=== PATIENT | female | born 1945 | race Caucasian/White ===

== ENCOUNTER → 2017-06-05 | Outpatient (CLI) | payer OTHER | LOC: FIMAGING 15:42 | PROVIDERS: ATTEND Orthopaedic Surgery | DX: M17.12 Unilateral primary osteoarthritis, left knee (principal) ==

== ENCOUNTER 2017-07-09 09:15 | Observation (INO) | payer OTHER ==
[~2017-07-09 09:15] MED LIST: ROPIVACAINE 0.2% 80 MG, EPINEPHrine 0.2 MG, KETOROLAC TROMETHAMINE 30 MG in SYRINGE 0 ML IU ONE
[2017-07-18] MEDS ORDERED: BUPI/epINEPH/KETOROLAC IU ONE (06:00)
[2017-07-18] MEDS ORDERED: TRANEXAMIC ACID 3,000 MG in NS (SYRINGE) 50 ML IRR ONE (06:00)
--- NOTE | 2017-07-18 07:09 | PDHPUP ---
History & Physical Update H&P update statement: This history and physical update is based on an assessment of the patient which was completed after admission or registration (within 24 hours), but prior to the surgery/procedure. H&P update: H&P reviewed & patient examined, no change in patient's condition since H&P completed
[2017-07-18] MEDS ORDERED: TRANEXAMIC ACID 3,000 MG/50 ML BAG IRR ONE (09:17)
[2017-07-18] MEDS ORDERED: ACETAMINOPHEN 325 MG TAB PO ONE (09:54)
[2017-07-18] MEDS ORDERED: LIDOCAINE 1% 2 ML INJ ID PRN (09:54)
[2017-07-18] MEDS ORDERED: FAMOTIDINE 20 MG TAB PO ONE (09:54)
[2017-07-18] MEDS ORDERED: DEXAMETHASONE 4 MG/ML VIAL IVP ONE (09:54)
[2017-07-18] MEDS ORDERED: LR 1,000 ML IV ONE (09:54)
[2017-07-18] MEDS ORDERED: ceFAZolin 2 GM/SWFI 2 GM/20 ML SYR IVP ONE (09:54)
--- NOTE | 2017-07-18 10:35 | PDANEPAE ---
ANE History of Present Illness here for TKA ANE Past Medical History - Cardiovascular History Hx Hypertension: No Hx Arrhythmias: No Hx Chest Pain: No Hx Coronary Artery / Peripheral Vascular Disease: No Hx CHF / Valvular Disease: No Hx Palpitations: No - Pulmonary History Hx COPD: No Hx Asthma/Reactive Airway Disease: No Hx Recent Upper Respiratory Infection: No Hx Oxygen in Use at Home: No Hx Sleep Apnea: No Sleep Apnea Screening Result - Last Documented: Negative Pulmonary History Comment: URI INDUCED ASTHMA NOT FOR A NUMBER OF YEARS. HAVING SLEEP STUDY - Neurologic History Hx Cerebrovascular Accident: No Hx Seizures: No Hx Dementia: No - Endocrine History Hx Diabetes: No - Renal History Hx Renal Disorders: No - Liver History Hx Hepatic Disorders: No - Neurological & Psychiatric Hx Hx Neurological and Psychiatric Disorders: Yes Neurological / Psychiatric History Comment: DEPRESSION/ANXIETY - Cancer History Hx Cancer: No - Congenital Disorder History Hx Congenital Disorders: No - GI History Hx Gastrointestinal Disorders: Yes Gastrointestinal History Comment: INTERMITTENT PROTON PUMP INHIBITOR FOR DX REFLUX ON RARE. OCCASIONAL DISCOMFOR POST EATING. CHRONIC COUGH/MUCUS. WHEN TAKES RX SEE AN IMPROVEMENT DOESN'T WANT TO TAKE RAW SAMPLER - Other Health History Other Health History: HAS BEEN TOLD SHE HAS SMALL AIRWAY AND A LARGE TONGUE. ECZEMA ON BACK/SHLDRS/TUMMY. OSTEOARTHRITIS - Chronic Pain History Chronic Pain: Yes (LT KNEE) - Surgical History Prior Surgeries: LINETTE CATARACT 11/2016. REMVL VOCAL CORD POLYPS. REMVL BENIGN GROWTH RT KIDNEY. REMVL INTESTINAL FAT AND APPY ANE Review of Systems Review of systems is: negative Review of Systems: - Exercise capacity Exercise capacity: >=4 METS METS (RN): 4 METS ANE Patient History - Allergies Allergies/Adverse Reactions: fentanyl Allergy (Verified 06/10/17 14:41) NAUSEA kiwi Allergy (Verified 06/10/17 14:42) Anaphylaxis GARBANZO BEANS Allergy (Uncoded 06/10/17 14:42) Anaphylaxis - Home Medications Home medications: home medication list seen and reviewed Home Medications: Herbals/Supplements -Info Only 1 ea PO DAILY 06/10/17 [Last Taken 06/27/17] Ibuprofen [Motrin (*)] 200 mg PO DAILY PRN 06/10/17 [Last Taken 07/04/17] LORazepam [Ativan (*)] 0.5 mg PO HS PRN 06/10/17 [Last Taken 07/16/17] Omeprazole 20 mg PO DAILY PRN 06/10/17 [Last Taken 07/18/17 07:30] Sertraline HCl [Zoloft 50mg (*)] 50 mg PO DAILY 06/10/17 [Last Taken 07/18/17 07 :30] - NPO status NPO Status: no food or drink >8 hours NPO Since - Liquids (Date): 07/18/17 NPO Since - Liquids (Time): 07:45 NPO Since - Solids (Date): 07/17/17 NPO Since - Solids (Time): 20:00 - Smoking Hx Smoking Status: Former smoker ANE Labs/Vital Signs - Vital Signs Vital Signs: reviewed preoperatively; see RN documention for details Blood Pressure: 125/78 Heart Rate: 64 Respiratory Rate: 16 O2 Sat (%): 97 Height: 167.64 cm Weight: 55.338 kg ANE Physical Exam - Airway Neck exam: FROM Mallampati Score: Class 1 Mouth exam: normal dental/mouth exam - Pulmonary Pulmonary: no respiratory distress - Cardiovascular Cardiovascular: regular rate and rhythym - ASA Status ASA Status: II ANE Anesthesia Plan Anesthesia Plan: spinal Regional Anesthesia: adductor canal FNB
[2017-07-18] MEDS ORDERED: PROPOFOL/EMULSION 500 MG/50 ML BOTTLE IV ONE (12:17)
[2017-07-18] MEDS ORDERED: PROPOFOL 200 MG/20 ML VIAL ONE (13:31)
[2017-07-18] MEDS ORDERED: MAGNESIUM HYDROXIDE 30 ML UDCUP PO PRN (13:37)
[2017-07-18] MEDS ORDERED: CYCLOBENZAPRINE 10 MG TAB PO PRN (13:37)
[2017-07-18] MEDS ORDERED: ONDANSETRON 4 MG/2 ML VIAL IVP PRN (13:37)
[2017-07-18] MEDS ORDERED: DIPHENOXYLATE/ATROPINE LOMOTIL 1 TAB PO PRN (13:37)
[2017-07-18] MEDS ORDERED: LACTULOSE 20 GM/30 ML UDCUP PO PRN (13:37)
[2017-07-18] MEDS ORDERED: BISACODYL 10 MG SUPP PR PRN (13:37)
[2017-07-18] MEDS ORDERED: PROMETHAZINE HCL 25 MG SUPPR PR PRN (13:37)
[2017-07-18] MEDS ORDERED: PROMETHAZINE HCL 25 MG/ML INJ IVP PRN (13:37)
[2017-07-18] MEDS ORDERED: ONDANSETRON DISINTEGRATING 4 MG TAB PO PRN (13:37)
[2017-07-18] MEDS ORDERED: TEMAZEPAM 15 MG CAP PO PRN (13:37)
[2017-07-18] MEDS ORDERED: POLYETHYLENE GLYCOL 3350 17 GM PKT PO PRN (13:37)
[2017-07-18] MEDS ORDERED: diphenhydrAMINE 25 MG CAP PO PRN (13:37)
--- NOTE | 2017-07-18 13:37 | POSTOPPROG ---
Post Op Note Date of Operation: 07/18/17 Surgeon: Marina Jennings Administrator Of Home Health: raiza jennings Anesthesiologist: dr. schmidt Anesthesia: Spinal, Other (Specify) (adductor canal block) Pre-op Diagnosis: left knee OA Post-op Diagnosis: same Indication: left knee pain due to OA that failed conservative measures Procedure: L TKA robot assisted Findings: severe knee OA Inf/Abcess present in the surg proc area at time of surgery?: No EBL: 50-100
[2017-07-18] MEDS ORDERED: ROPIVACAINE HCL 150 MG/30 ML INJ ONE (13:41)
--- NOTE | 2017-07-18 13:58 | POSTANESTH ---
Post Anesthetic Evaluation Cardiovascular Status: Normal, Stable Respiratory Status: Normal, Stable Level of Consciousness/Mental Status: Can Participate in Eval Pain Control: Adequate, Prn Tx Ordered Nausea/Vomiting Control: Adequate, Prn Tx Ordered Complications Possibly Related to Anesthesia: None Noted
[2017-07-18] MEDS ORDERED: ceFAZolin 2 GM/DEXTROSE 100 ML IV SCH (14:00)
[2017-07-18] MEDS ORDERED: LR 1,000 ML IV SCH (14:00)
[2017-07-18] MEDS ORDERED: oxyCODONE IR 5 MG TAB ONE (15:46)
[2017-07-18] MEDS: oxyCODONE IR 5 MG TAB PO PRN ×3 (15:48→23:56)
--- NOTE | 2017-07-18 17:42 | GOP ---
[f rep st] OPERATIVE REPORT DATE OF OPERATION: 07/18/2017 SURGEON: Ortega De Souza MD STATISTICAL DEVELOPER: Teresa De Souza PA-C. ANESTHESIA: Spinal. PREOPERATIVE DIAGNOSIS: Left knee osteoarthritis. POSTOPERATIVE DIAGNOSIS: Left knee osteoarthritis. PROCEDURE PERFORMED: Left total knee arthroplasty with computer navigation, robotic assist. FINDINGS: ESTIMATED BLOOD LOSS: 30 cc. INDICATIONS: The patient is a 71-year-old female with severe and progressive pain and deformity of t he left knee unresponsive to conservative care. The risks and benefits of surgical intervention were explained in detail. DESCRIPTION OF PROCEDURE: The patient was brought to the operative room and placed on the table in t he supine position. Spinal anesthesia was induced without difficulty. A pneumatic tourniquet was appl ied about the left proximal thigh, and the leg was prepped and draped in a sterile fashion. The leg h older was applied. After exsanguination by elevation the tourniquet was inflated to 250 mmHg. Incision was made anterior medial from the tibial tuberosity to a point 2 cm proximal to the superior pole of the patella. Medial parapatellar arthrotomy was carried out from the superior pole of the p atella and posteriorly in line with the fibers of the Type II VMO. The medial collateral ligament wa s elevated and the infrapatellar fat pad was resected. severe patellofemoral osteoarthrit is. The patella was everted and the articular surface was excised. A 35 mm patellar button was placed. Attention was turned first to the distal aspect of the femur. After exposure of the femur, 2 half pi ns were placed for fixation of the femoral array. In a similar fashion, 2 pins were placed anteromed ial on the tibia for fixation of the tibial array. External land marking and registration of the hip center was performed without difficulty. Internal femoral and tibial registration was carried out w ithout difficulty and the femoral and tibial checkpoints were placed and verified for accuracy. Attention was turned to the femur. The foot print for the size 3 femoral component was cut with the saw using the [employer] robotic system and verified for accuracy against the CT based plan. In a similar f ashion, the saw was used to cut the footprint for the size 4 tibial component using the [employer] system an d verified for accuracy against the CT based plan. The tibial articular surface was excised without d ifficulty, followed by the intercondylar box cut. The knee was extended and the remnants of the medial and lateral meniscus were excised. The posterio r capsule was injected with ropivacaine, epinephrine and Toradol. A size 4 tibial tray was positione d. Trial reduction was then carried out. There was excellent range of motion, alignment, and stabil ity using the 4 x 9 mm polyethylene. All trials were then removed. The joint was thoroughly irrigated and carefully dried. The press-fit components were implanted. The permanent 4 x 9 mm polyethylene was placed without difficulty. The tourniquet was deflated and all bleeders were coagulated. The wound was thoroughly irrigated and closed using interrupted sutures of 2-0 Vicryl for the joint capsule. The subcu was closed with 3-0 Vicryl and the skin with 4-0 Monocryl. Dermabond and Steri-Strips were applied followed by a compre ssive dressing. The patient was then moved from the operating room to the recovery room in good cond ition, having tolerated the procedure well. /[id number]/MODL
[2017-07-18] MEDS: ACETAMINOPHEN 325 MG TAB PO SCH ×2 (18:00→23:48)
[2017-07-18] MEDS: FAMOTIDINE 20 MG TAB PO SCH (20:14)
[2017-07-18] MEDS: ASPIRIN 81 MG CHEWABLE TAB PO SCH (20:15)
[2017-07-18] MEDS: SENNOSIDES/DOCUSATE SODIUM TAB PO SCH (20:15)
[2017-07-18] MEDS: ceFAZolin 2 GM/SWFI 2 GM/20 ML SYR IVP SCH (20:24)
[2017-07-19] MEDS: oxyCODONE IR 5 MG TAB PO PRN ×2 (04:26→08:31)
[2017-07-19] MEDS: ceFAZolin 2 GM/SWFI 2 GM/20 ML SYR IVP SCH (04:30)
[2017-07-19] MEDS: ACETAMINOPHEN 325 MG TAB PO SCH (05:55)
[2017-07-19 07:57] VITALS: BP 118/72
[2017-07-19] MEDS: ASPIRIN 81 MG CHEWABLE TAB PO SCH (08:28)
[2017-07-19] MEDS: SENNOSIDES/DOCUSATE SODIUM TAB PO SCH (08:28)
[2017-07-19] MEDS: FAMOTIDINE 20 MG TAB PO SCH (08:29)
--- NOTE | 2017-07-19 09:43 | SOAPPROG ---
SOAP Progress Note Assessment/Plan: Assessment: Patient is doing well POD 1 s/p L TKA pain is well controlled on oral pain meds, adductor canal block is still in effect VTE ppx: recommend ASA 81 mg BID d/c planning: d/c to home today Plan: 07/19/17 09:41 Subjective: Marleny is doing well, denies SOB ,chest pain and N/V. Objective: Vital Signs Temp Pulse Resp BP Pulse Ox 37.0 C 72 16 118/72 96 07/19/17 07:55 07/19/17 07:55 07/19/17 07:55 07/19/17 07:55 07/19/17 07:55 Laboratory Results 07/19/17 04:18 07/18/17 07/19/17 07/20/17 05:59 05:59 05:59 Intake Total 1497 200 Output Total 1430 650 Balance 67 -450 LLE: incision dressing is clean and dry, NVI, +pf/df ICD10 Worksheet Patient Problems: Problems Problem Status Onset Primary localized osteoarthritis of left knee Acute
--- NOTE | 2017-07-22 16:15 | GDS ---
[f rep st] DISCHARGE SUMMARY ADMISSION DIAGNOSIS: Left knee osteoarthritis. DISCHARGE DIAGNOSIS: Left knee osteoarthritis. PROCEDURE: Left total knee arthroplasty, robot-assisted. VTE PROPHYLAXIS: Recommend aspirin twice daily for a month. BRIEF DESCRIPTION OF HOSPITAL STAY: Patient was admitted for an elective joint arthroplasty. The pa alex tolerated the procedure well and has passed physical therapy. The patient was given appropriat e antibiotic prophylaxis and venous thromboembolism prophylaxis. The patient's pain was well control led on oral pain medication, patient was holding down food, and had urinated. Decision was made to d ischarge the patient. The patient was given post-operative prescriptions pre-operatively. PLAN: Follow up with scheduled 07/31 at 11:15. /[id number]/MODL
== END 2017-07-19 10:16 | disposition home or self-care (01) ==
LOC: F3N 07-18 09:03 → INTOOBSV 07-18 09:03 → F3N 07-18 16:19
PROVIDERS: ADMIT Orthopaedic Surgery; ATTEND Orthopaedic Surgery
PROC: 8E0Y0CZ Robotic Assisted Procedure of Lower Extremity, Open Approach (ICD-10-PCS; principal; 2017-07-18 11:15)
PROC: 8E0YXBG Computer Assisted Procedure of Lower Extremity, With Computerized Tomography (ICD-10-PCS; principal; 2017-07-18 11:15)
PROC: 0SRD0LZ Replacement of Left Knee Joint with Medial Unicondylar Synthetic Substitute, Open Approach (ICD-10-PCS; principal; 2017-07-18 11:15)
DX: M17.12 Unilateral primary osteoarthritis, left knee (principal); F41.8 Other specified anxiety disorders; Z87.891 Personal history of nicotine dependence; K21.9 Gastro-esophageal reflux disease without esophagitis; L30.9 Dermatitis, unspecified
CPT/HCPCS: 27447; 73560; 88311; 97161; 97165; C1776; G0378; G8978; G8979; G8980; G8987; G8988; G8989; J0171; J0690; J1100; J1885; J2704; J2795

== ENCOUNTER → 2017-08-30 | Outpatient (CLI) | payer OTHER | LOC: FCPNEURO 21:00 | PROVIDERS: ATTEND Psychiatry & Neurology Sleep Medicine | DX: G47.33 Obstructive sleep apnea (adult) (pediatric) (principal) ==